=== PATIENT | female | born 1960 | race Two or more races ===

== ENCOUNTER 2019-09-05 10:26 | Inpatient (IN) | payer OTHER ==
[~2019-09-05] VITALS: Ht 157.5 cm; Wt 78.9 kg
[2019-09-20] MEDS ORDERED: ARICEPT10 MG PO (08:22)
[2019-09-20] MEDS ORDERED: CYMBALTA30 MG PO (08:22)
[2019-09-20] MEDS ORDERED: FOSAMAX70 MG PO (08:23)
[2019-09-20] MEDS ORDERED: NEUR PO (08:24)
[2019-09-20] MEDS ORDERED: TOPROL XL50 M1 PO (08:24)
[2019-09-20] MEDS ORDERED: ASPIR 8181 MG PO (08:25)
[2019-09-20] MEDS ORDERED: FORTAMET500 MG PO (08:25)
[2019-09-20] MEDS ORDERED: GABAPENT PO (08:26)
[2019-09-20] MEDS ORDERED: ZANTAC150 M3 PO (08:26)
[2019-09-20] MEDS ORDERED: CENTRUM ADULTS1 EACH PO (08:27)
[2019-09-25] MEDS ORDERED: GABAPENTIN300 M2 PO (09:38)
[2019-09-25] MEDS ORDERED: SIMVASTATIN20 MG PO (09:39)
[2019-09-25] MEDS ORDERED: MAXIMUM D3325 MCG (09:39)
[2019-09-25] MEDS ORDERED: ABANEU-SL TABL1 EACH (09:43)
[2019-10-02] MEDS ORDERED: ELIQUIS2.5 MG PO (15:23)
[2019-10-02] MEDS ORDERED: PERCOCET 5-3251 EACH PO (15:23)
== END 2019-10-02 20:56 | DRG 470 ==
LOC: SURH 09-25 04:24 → O/R 09-25 04:24 → SURH 09-25 07:00 → SURG 09-25 07:00 → SURH 09-25 15:34
PROVIDERS: ADMIT Orthopaedic Surgery
PROC: 0MNN0ZZ Release Right Knee Bursa and Ligament, Open Approach (ICD-10-PCS; 2019-09-25)
PROC: 30233N1 Transfusion of Nonautologous Red Blood Cells into Peripheral Vein, Percutaneous Approach (ICD-10-PCS; 2019-09-25)
PROC: 0SRC0J9 Replacement of Right Knee Joint with Synthetic Substitute, Cemented, Open Approach (ICD-10-PCS; principal; 2019-09-25 07:00)
DX: M17.11 Unilateral primary osteoarthritis, right knee (principal); D62 Acute posthemorrhagic anemia; D69.3 Immune thrombocytopenic purpura; Z86.73 Personal history of transient ischemic attack (TIA), and cerebral infarction without residual deficits; Z96.651 Presence of right artificial knee joint; G30.1 Alzheimer's disease with late onset; F02.80 Dementia in other diseases classified elsewhere, unspecified severity, without behavioral disturbance, psychotic disturbance, mood disturbance, and anxiety; D69.49 Other primary thrombocytopenia; E78.00 Pure hypercholesterolemia, unspecified; M22.11 Recurrent subluxation of patella, right knee

== ENCOUNTER 2020-05-30 07:09 | Outpatient (CLI) | payer OTHER ==
[~2020-05-30 07:09] MED LIST: ABANEU-SL TABL1 EACH; ARICEPT10 MG PO; ASPIR 8181 MG PO; CENTRUM ADULTS1 EACH PO; CYMBALTA30 MG PO; ELIQUIS2.5 MG PO; FORTAMET500 MG PO; FOSAMAX70 MG PO; GABAPENT PO; GABAPENTIN300 M2 PO; MAXIMUM D3325 MCG; NEUR PO; PERCOCET 5-3251 EACH PO; SIMVASTATIN20 MG PO; TOPROL XL50 M1 PO; ZANTAC150 M3 PO
== END 2020-05-30 07:21 | disposition home or self-care (01) ==
LOC: NUCLEAR 07:09
PROVIDERS: ATTEND Internal Medicine Cardiovascular Disease
DX: R07.89 Other chest pain (principal); I10 Essential (primary) hypertension; R94.31 Abnormal electrocardiogram [ECG] [EKG]; E78.00 Pure hypercholesterolemia, unspecified
CPT/HCPCS: 78452; 93017; A9500; J0153

== ENCOUNTER 2020-11-12 08:05 | Outpatient (CLI) | payer OTHER | END 2020-11-12 13:38 | disposition home or self-care (01) | LOC: OFIC 805 08:05 | PROVIDERS: ATTEND Otolaryngology Otology & Neurotology | DX: H90.6 Mixed conductive and sensorineural hearing loss, bilateral (principal); H93.13 Tinnitus, bilateral ==

== ENCOUNTER 2020-12-30 07:08 | Outpatient (CLI) | payer OTHER | END 2020-12-30 07:21 | disposition home or self-care (01) | LOC: TOM 07:08 | PROVIDERS: ATTEND Otolaryngology Otology & Neurotology | DX: H80.81 Other otosclerosis, right ear (principal) ==

== ENCOUNTER 2021-05-27 10:52 | Inpatient (IN) | payer OTHER ==
[~2021-05-27] VITALS: Ht 157.5 cm; Wt 78.9 kg
[2021-06-03] MEDS ORDERED: TRIAMCINOLONE A15 G1 (08:25)
[2021-06-03] MEDS ORDERED: ALENDRONATE SOD70 MG (08:25)
[2021-06-03] MEDS ORDERED: CLOTRIMAZOLE-BE15 G1 (08:26)
[2021-06-03] MEDS ORDERED: OMEPRAZOLE20 MG (08:26)
[2021-06-03] MEDS ORDERED: CYANOCOBAL1000 MCG/1 (08:26)
[2021-06-03] MEDS ORDERED: ZOVIRAX400 MG (08:27)
[2021-06-03] MEDS ORDERED: DICYCLOMINE HCL20 MG (08:27)
[2021-06-04] MEDS ORDERED: ELIQUIS2.5 MG PO (18:06)
[2021-06-04] MEDS ORDERED: PERCOCET 5-3251 EACH PO (18:06)
[2021-06-04] MEDS ORDERED: DUI500 PO (18:06)
== END 2021-06-04 20:13 | DRG 470 ==
LOC: SURG 06-02 05:59 → O/R 06-02 05:59 → SURH 06-02 11:00 → SURG-SUITE 06-02 11:00 → SURH 06-02 12:30 → SURG 06-02 15:29
PROVIDERS: ADMIT Orthopaedic Surgery; ATTEND Orthopaedic Surgery
PROC: 0SRD0J9 Replacement of Left Knee Joint with Synthetic Substitute, Cemented, Open Approach (ICD-10-PCS; principal; 2021-06-02 12:30)
DX: M17.12 Unilateral primary osteoarthritis, left knee (principal); D62 Acute posthemorrhagic anemia; G30.9 Alzheimer's disease, unspecified; F02.80 Dementia in other diseases classified elsewhere, unspecified severity, without behavioral disturbance, psychotic disturbance, mood disturbance, and anxiety; D51.8 Other vitamin B12 deficiency anemias; D69.6 Thrombocytopenia, unspecified; Z20.822 Contact with and (suspected) exposure to COVID-19

== ENCOUNTER 2021-09-22 05:25 | Day surgery (SDC) | payer OTHER ==
[~2021-09-22 05:25] MED LIST changes: +ALENDRONATE SOD70 MG; +CLOTRIMAZOLE-BE15 G1; +CYANOCOBAL1000 MCG/1; +DICYCLOMINE HCL20 MG; +DUI500 PO; +OMEPRAZOLE20 MG; +TRIAMCINOLONE A15 G1; +ZOVIRAX400 MG
[2021-09-22] MEDS ORDERED: DUI500 PO (14:00)
[2021-09-22] MEDS ORDERED: PERCOCET 5-3251 EACH PO (14:00)
== END 2021-09-22 14:50 | disposition home or self-care (01) ==
LOC: CIR.AMB 05:25
PROVIDERS: ATTEND Orthopaedic Surgery
DX: M24.562 Contracture, left knee (principal)

== ENCOUNTER 2021-12-15 06:14 | Outpatient (CLI) | payer OTHER | END 2021-12-15 06:19 | disposition home or self-care (01) | LOC: LAB 06:14 | PROVIDERS: ATTEND Internal Medicine Geriatric Medicine | DX: D50.9 Iron deficiency anemia, unspecified (principal); E03.9 Hypothyroidism, unspecified; E78.2 Mixed hyperlipidemia; I11.9 Hypertensive heart disease without heart failure; E56.8 Deficiency of other vitamins; N39.0 Urinary tract infection, site not specified; Z12.11 Encounter for screening for malignant neoplasm of colon; R19.5 Other fecal abnormalities; E55.9 Vitamin D deficiency, unspecified; E11.9 Type 2 diabetes mellitus without complications; D68.9 Coagulation defect, unspecified; E03.8 Other specified hypothyroidism; E64.9 Sequelae of unspecified nutritional deficiency ==

== ENCOUNTER 2022-01-20 10:15 | Outpatient (CLI) | payer OTHER | END 2022-01-20 10:20 | disposition home or self-care (01) | LOC: LAB 10:15 | DX: E11.8 Type 2 diabetes mellitus with unspecified complications (principal) ==

== ENCOUNTER 2022-01-28 07:47 | Outpatient (CLI) | payer OTHER | END 2022-01-28 08:20 | disposition home or self-care (01) | LOC: MRI 07:47 | PROVIDERS: ATTEND Orthopaedic Surgery | DX: M54.50 Low back pain, unspecified (principal) | CPT/HCPCS: 72148 ==

== ENCOUNTER 2022-02-15 08:27 | Emergency (ER) | payer OTHER ==
[~2022-02-15] VITALS: Ht 157.5 cm; Wt 78.9 kg
[2022-02-15] MEDS ORDERED: MEDROLPACK PO (10:55)
== END 2022-02-15 11:00 | disposition home or self-care (01) ==
LOC: ER 08:27
DX: G51.0 Bell's palsy (principal); Z91.041 Radiographic dye allergy status; Z91.013 Allergy to seafood; Z91.09 Other allergy status, other than to drugs and biological substances; E11.9 Type 2 diabetes mellitus without complications; Z79.899 Other long term (current) drug therapy; I10 Essential (primary) hypertension; M79.7 Fibromyalgia

== ENCOUNTER 2022-03-22 06:31 | Outpatient (CLI) | payer OTHER ==
[~2022-03-22 06:31] MED LIST changes: +MEDROLPACK PO
== END 2022-03-22 06:32 | disposition home or self-care (01) ==
LOC: LAB 06:31
PROVIDERS: ATTEND Internal Medicine Geriatric Medicine
DX: D50.9 Iron deficiency anemia, unspecified (principal); E03.9 Hypothyroidism, unspecified; E78.2 Mixed hyperlipidemia; I11.9 Hypertensive heart disease without heart failure; E56.8 Deficiency of other vitamins; N39.0 Urinary tract infection, site not specified; R19.5 Other fecal abnormalities; E55.9 Vitamin D deficiency, unspecified; N19 Unspecified kidney failure; E11.9 Type 2 diabetes mellitus without complications; R80.9 Proteinuria, unspecified; Z12.11 Encounter for screening for malignant neoplasm of colon

== ENCOUNTER 2022-03-24 06:22 | Outpatient (CLI) | payer OTHER | END 2022-03-24 06:32 | disposition home or self-care (01) | LOC: LAB 06:22 | PROVIDERS: ATTEND Internal Medicine Geriatric Medicine | DX: D50.9 Iron deficiency anemia, unspecified (principal); E03.9 Hypothyroidism, unspecified; E78.2 Mixed hyperlipidemia; I11.9 Hypertensive heart disease without heart failure; E56.8 Deficiency of other vitamins; N39.0 Urinary tract infection, site not specified; R19.5 Other fecal abnormalities; N19 Unspecified kidney failure; E11.9 Type 2 diabetes mellitus without complications; R80.9 Proteinuria, unspecified; Z12.11 Encounter for screening for malignant neoplasm of colon ==

== ENCOUNTER 2022-09-01 06:10 | Outpatient (CLI) | payer OTHER | END 2022-09-01 07:53 | disposition home or self-care (01) | LOC: LAB 06:10 | PROVIDERS: ATTEND Internal Medicine | DX: I25.9 Chronic ischemic heart disease, unspecified (principal); E78.9 Disorder of lipoprotein metabolism, unspecified; I11.9 Hypertensive heart disease without heart failure ==

== ENCOUNTER → 2022-09-01 | Outpatient (CLI) | payer OTHER | END | disposition home or self-care (01) | LOC: NUCLEAR 07:00 | PROVIDERS: ATTEND Internal Medicine Cardiovascular Disease | DX: R00.0 Tachycardia, unspecified (principal) ==

== ENCOUNTER 2022-09-03 06:51 | Outpatient (CLI) | payer OTHER | END 2022-09-03 07:03 | disposition home or self-care (01) | LOC: LAB 06:51 | DX: U07.1 COVID-19 (principal) ==

== ENCOUNTER → 2022-09-07 | Outpatient (CLI) | payer OTHER | END | disposition home or self-care (01) | LOC: NUCLEAR 07:00 | PROVIDERS: ATTEND Internal Medicine | DX: I25.10 Atherosclerotic heart disease of native coronary artery without angina pectoris (principal) | CPT/HCPCS: 78452; 93017; A9500 ==

== ENCOUNTER → 2022-10-06 09:07 | Outpatient (CLI) | payer OTHER | END | disposition home or self-care (01) | LOC: LAB 09:07 | PROVIDERS: ATTEND Internal Medicine Geriatric Medicine | DX: D50.9 Iron deficiency anemia, unspecified (principal); E03.9 Hypothyroidism, unspecified; E78.2 Mixed hyperlipidemia; I11.9 Hypertensive heart disease without heart failure; E56.8 Deficiency of other vitamins; N39.0 Urinary tract infection, site not specified; Z12.11 Encounter for screening for malignant neoplasm of colon; R19.5 Other fecal abnormalities; E55.9 Vitamin D deficiency, unspecified; N19 Unspecified kidney failure; E11.9 Type 2 diabetes mellitus without complications; K82.8 Other specified diseases of gallbladder ==

== ENCOUNTER 2022-10-14 07:05 | Outpatient (CLI) | payer OTHER | END 2022-10-14 07:16 | disposition home or self-care (01) | LOC: MRI 07:05 | PROVIDERS: ATTEND Internal Medicine Geriatric Medicine | DX: K82.8 Other specified diseases of gallbladder (principal) | CPT/HCPCS: 74183; Q9965 ==

== ENCOUNTER → 2022-11-16 06:05 | Outpatient (CLI) | payer OTHER | END | disposition home or self-care (01) | LOC: LAB 06:05 | PROVIDERS: ATTEND Internal Medicine Geriatric Medicine | DX: N39.0 Urinary tract infection, site not specified (principal) ==

== ENCOUNTER → 2022-12-29 | Outpatient (CLI) | payer OTHER | END | disposition home or self-care (01) | LOC: NUCLEAR 09:59 | PROVIDERS: ATTEND Internal Medicine Geriatric Medicine | DX: M15.0 Primary generalized (osteo)arthritis (principal); M81.0 Age-related osteoporosis without current pathological fracture ==

== ENCOUNTER 2023-01-10 07:29 | Outpatient (CLI) | payer OTHER | END 2023-01-10 07:43 | disposition home or self-care (01) | LOC: MAMO-SONO 07:29 | PROVIDERS: ATTEND Internal Medicine Geriatric Medicine | DX: Z12.31 Encounter for screening mammogram for malignant neoplasm of breast (principal); C50.919 Malignant neoplasm of unspecified site of unspecified female breast; N63.0 Unspecified lump in unspecified breast; N64.4 Mastodynia; N60.12 Diffuse cystic mastopathy of left breast; N60.11 Diffuse cystic mastopathy of right breast ==

== ENCOUNTER 2023-01-26 06:08 | Outpatient (CLI) | payer OTHER | END 2023-01-26 06:16 | disposition home or self-care (01) | LOC: LAB 06:08 | PROVIDERS: ATTEND Internal Medicine Geriatric Medicine | DX: D50.9 Iron deficiency anemia, unspecified (principal); E03.9 Hypothyroidism, unspecified; E78.2 Mixed hyperlipidemia; I11.9 Hypertensive heart disease without heart failure; E56.8 Deficiency of other vitamins; N39.0 Urinary tract infection, site not specified; Z12.11 Encounter for screening for malignant neoplasm of colon; E55.9 Vitamin D deficiency, unspecified; N19 Unspecified kidney failure; E11.9 Type 2 diabetes mellitus without complications; R80.9 Proteinuria, unspecified; K92.1 Melena ==

== ENCOUNTER 2023-04-04 07:26 | Outpatient (CLI) | payer OTHER | END 2023-04-04 07:33 | disposition home or self-care (01) | LOC: MRI 07:26 | PROVIDERS: ATTEND Physical Medicine & Rehabilitation | DX: M54.2 Cervicalgia (principal) | CPT/HCPCS: 72141 ==

== ENCOUNTER 2023-06-20 07:12 | Outpatient (CLI) | payer OTHER | END 2023-06-20 07:19 | disposition home or self-care (01) | LOC: MRI 07:12 | PROVIDERS: ATTEND Physical Medicine & Rehabilitation | DX: M54.59 Other low back pain (principal); M54.16 Radiculopathy, lumbar region | CPT/HCPCS: 72148 ==

== ENCOUNTER 2023-09-28 06:37 | Outpatient (CLI) | payer OTHER ==
[2023-09-28 07:58] LABS: URINE APPEARANCE Clear; URINE BILIRRUBIN Negative (NEGATIVE); URINE BLOOD Negative; URINE COLOR Yellow; URINE GLUCOSE Negative (NEGATIVE); URINE LEUKOCYTE Negative; URINE NITRATE Negative; URINE PROTEIN Negative (NEGATIVE); URINE UROBILINOGEN 0.2 E.U./dl
[2023-09-28 08:00] LABS: HEMATOCRIT 38.6 % (36.0-45.00); HEMOGLOBIN 12.3 g/dL (12.0-15.00); MEAN CORPUSCULAR HEMOGLOBIN 21.8 pg (27.00-32.0); PLATELET COUNT 130 K/uL (150-450); RED BLOOD COUNT 5.66 M/uL (4.00-6.00); RED CELL DISTRIBUTION WIDTH 16.1 % (11.5-14.5)
[2023-09-28 08:03] LABS: URINE BACTERIA 221.6 uL (0.0-1933); URINE EPITHELIAL CELLS 12.4 uL (0.0-38.8); URINE RBC 3.1 uL (0.0-20.8); URINE WBC 9.7 uL (0.0-23.2)
[2023-09-28 08:30] LABS: ALBUMIN 3.5 gm/dL (3.4-5.0); BILIRUBIN TOTAL 0.67 mg/dL (0.3-1.2); CALCIUM 9.1 mg/dL (8.5-10.1); CHOL HDL RATIO 3.5 (0-5.0); CREATININE SERUM 0.56 mg/dL (0.55-1.02); GFR 109.34; GLOBULINA 3.7 G/DL (2.4-3.5); MEAN CELL VOLUME 68.1 fL (80.00-100.00); POTASSIUM 3.83 mEq/L (3.5-5.1); TOTAL PROTEIN 7.2 gm/dL (6.4-8.2); TSH 1.19 uIU/mL (0.358-3.74)
== END 2023-09-28 06:39 | disposition home or self-care (01) ==
LOC: LAB 06:37
PROVIDERS: ATTEND Internal Medicine Geriatric Medicine
DX: D50.9 Iron deficiency anemia, unspecified (principal); E03.9 Hypothyroidism, unspecified; E78.2 Mixed hyperlipidemia; I11.9 Hypertensive heart disease without heart failure; E56.8 Deficiency of other vitamins; N39.0 Urinary tract infection, site not specified; Z12.11 Encounter for screening for malignant neoplasm of colon; R19.5 Other fecal abnormalities; E55.9 Vitamin D deficiency, unspecified; N19 Unspecified kidney failure; E11.9 Type 2 diabetes mellitus without complications

== ENCOUNTER 2023-10-03 07:03 | Outpatient (CLI) | payer OTHER | END 2023-10-03 07:06 | disposition home or self-care (01) | LOC: RAD 07:03 | PROVIDERS: ATTEND Internal Medicine Pulmonary Disease | DX: G47.33 Obstructive sleep apnea (adult) (pediatric) (principal); E66.01 Morbid (severe) obesity due to excess calories; R06.02 Shortness of breath ==

== ENCOUNTER → 2023-10-27 06:44 | Outpatient (CLI) | payer OTHER ==
[2023-10-27 07:54] LABS: HEMATOCRIT 39.3 % (36.0-45.00); HEMOGLOBIN 12.6 g/dL (12.0-15.00); PLATELET COUNT 160 K/uL (150-450); RED BLOOD COUNT 5.73 M/uL (4.00-6.00); RED CELL DISTRIBUTION WIDTH 15.8 % (11.5-14.5)
[2023-10-27 07:55] LABS: MEAN CELL VOLUME 68.7 fL (80.00-100.00)
[2023-10-27 08:48] LABS: ALBUMIN 3.5 gm/dL (3.4-5.0); BILIRUBIN TOTAL 0.35 mg/dL (0.3-1.2); CALCIUM 9.2 mg/dL (8.5-10.1); CREATININE SERUM 0.59 mg/dL (0.55-1.02); GFR 102.94; GLOBULINA 3.9 G/DL (2.4-3.5); POTASSIUM 4.42 mEq/L (3.5-5.1); TOTAL PROTEIN 7.4 gm/dL (6.4-8.2); TSH 0.72 uIU/mL (0.358-3.74)
[2023-10-27 10:54] LABS: FOLIC ACID 8.45 ng/ml (4.78-20)
== END | disposition home or self-care (01) ==
LOC: LAB 06:44
DX: D51.3 Other dietary vitamin B12 deficiency anemia (principal); E11.9 Type 2 diabetes mellitus without complications; E72.11 Homocystinuria; D50.9 Iron deficiency anemia, unspecified; E03.9 Hypothyroidism, unspecified; Z88.6 Allergy status to analgesic agent; Z91.041 Radiographic dye allergy status

== ENCOUNTER 2024-02-16 07:38 | Outpatient (CLI) | payer OTHER | END 2024-02-16 07:39 | disposition home or self-care (01) | LOC: NUCLEAR 07:38 | PROVIDERS: ATTEND Internal Medicine Geriatric Medicine | DX: I87.2 Venous insufficiency (chronic) (peripheral) (principal) ==

== ENCOUNTER 2024-05-07 06:12 | Outpatient (CLI) | payer OTHER ==
[2024-05-07 07:27] LABS: HEMATOCRIT 37.8 % (36.0-45.00); HEMOGLOBIN 12.2 g/dL (12.0-15.00); MEAN CORPUSCULAR HEMOGLOBIN 22.3 pg (27.00-32.0); MEAN CORPUSCULAR HGB CONC 32.4 g/dl (32.0-36.0); PLATELET COUNT 131 K/uL (150-450); RED CELL DISTRIBUTION WIDTH 15.9 % (11.5-14.5)
[2024-05-07 07:41] LABS: MEAN CELL VOLUME 68.8 fL (80.00-100.00)
[2024-05-07 08:08] LABS: ALBUMIN 3.5 gm/dL (3.4-5.0); BILIRUBIN TOTAL 0.37 mg/dL (0.3-1.2); CALCIUM 8.6 mg/dL (8.5-10.1); CREATININE SERUM 0.59 mg/dL (0.55-1.02); GFR 102.62; GLOBULINA 3.5 G/DL (2.4-3.5); POTASSIUM 4.12 mEq/L (3.5-5.1)
[2024-05-07 12:33] LABS: FOLIC ACID 9.15 ng/ml (4.78-20); VITAMIN D3 25 HYDROXY 37.61 ng/ml (30-120)
[2024-05-07 13:12] LABS: MANUAL PLATELET COUNT 330; PLATELET ESTIMATE NORMAL (NORMAL)
[2024-05-08 13:11] LABS: CA 125 12.1 U/mL (0.0-38.1); HOMOCYSTEINE 12.3 umol/L (0.0-17.2)
== END 2024-05-07 06:13 | disposition home or self-care (01) ==
LOC: LAB 06:12
PROVIDERS: ATTEND Internal Medicine Hematology & Oncology
DX: D51.1 Vitamin B12 deficiency anemia due to selective vitamin B12 malabsorption with proteinuria (principal); D51.3 Other dietary vitamin B12 deficiency anemia; M17.11 Unilateral primary osteoarthritis, right knee; D62 Acute posthemorrhagic anemia; Z96.651 Presence of right artificial knee joint; G30.0 Alzheimer's disease with early onset; E11.9 Type 2 diabetes mellitus without complications; E55.9 Vitamin D deficiency, unspecified; E78.2 Mixed hyperlipidemia; A60.09 Herpesviral infection of other urogenital tract; E72.11 Homocystinuria; D50.8 Other iron deficiency anemias; R79.9 Abnormal finding of blood chemistry, unspecified; I10 Essential (primary) hypertension; R74.02 Elevation of levels of lactic acid dehydrogenase [LDH]; K76.89 Other specified diseases of liver; C56.9 Malignant neoplasm of unspecified ovary; R97.1 Elevated cancer antigen 125 [CA 125]; D68.59 Other primary thrombophilia

== ENCOUNTER → 2024-07-16 06:20 | Outpatient (CLI) | payer OTHER ==
[2024-07-16 07:29] LABS: HEMATOCRIT 39.1 % (36.0-45.00); HEMOGLOBIN 12.2 g/dL (12.0-15.00); MEAN CORPUSCULAR HEMOGLOBIN 21.8 pg (27.00-32.0); MEAN CORPUSCULAR HGB CONC 31.3 g/dl (32.0-36.0); PLATELET COUNT 205 K/uL (150-450); RED BLOOD COUNT 5.61 M/uL (4.00-6.00); RED CELL DISTRIBUTION WIDTH 15.2 % (11.5-14.5)
[2024-07-16 07:31] LABS: URINE APPEARANCE Clear; URINE BILIRRUBIN Negative (NEGATIVE); URINE BLOOD Negative; URINE COLOR Yellow; URINE GLUCOSE Negative (NEGATIVE); URINE KETONE Negative (NEGATIVE); URINE LEUKOCYTE Moderate; URINE NITRATE Negative; URINE PROTEIN Negative (NEGATIVE)
[2024-07-16 07:32] LABS: MEAN CELL VOLUME 69.6 fL (80.00-100.00)
[2024-07-16 07:52] LABS: URINE BACTERIA 3177.5 uL (0.0-1933); URINE RBC 5.8 uL (0.0-20.8); URINE WBC 36.9 uL (0.0-23.2)
[2024-07-16 08:09] LABS: URINE CAST 0.15 uL (0.0-1.40)
[2024-07-16 08:27] LABS: ALBUMIN 3.6 gm/dL (3.4-5.0); BILIRUBIN TOTAL 0.43 mg/dL (0.3-1.2); CALCIUM 9.1 mg/dL (8.5-10.1); CHOL HDL RATIO 2.8 (0-5.0); CREATININE SERUM 0.6 mg/dL (0.55-1.02); GFR 100.64; GLOBULINA 3.7 G/DL (2.4-3.5); POTASSIUM 4.21 mEq/L (3.5-5.1); TOTAL PROTEIN 7.3 gm/dL (6.4-8.2); TSH 1.59 uIU/mL (0.358-3.74)
== END | disposition home or self-care (01) ==
LOC: LAB 06:20
PROVIDERS: ATTEND Internal Medicine Geriatric Medicine
DX: D50.9 Iron deficiency anemia, unspecified (principal); E03.9 Hypothyroidism, unspecified; E78.2 Mixed hyperlipidemia; I11.9 Hypertensive heart disease without heart failure; E56.8 Deficiency of other vitamins; N39.0 Urinary tract infection, site not specified; Z12.11 Encounter for screening for malignant neoplasm of colon; R19.5 Other fecal abnormalities; E55.9 Vitamin D deficiency, unspecified; N19 Unspecified kidney failure; E11.9 Type 2 diabetes mellitus without complications

== ENCOUNTER 2024-09-17 12:17 | Outpatient (CLI) | payer OTHER | END 2024-09-17 12:19 | disposition home or self-care (01) | LOC: RAD 12:17 | DX: R05.1 Acute cough (principal) ==

== ENCOUNTER 2024-09-20 06:11 | Outpatient (CLI) | payer OTHER ==
[2024-09-20 07:03] LABS: URINE APPEARANCE Cloudy; URINE BILIRRUBIN Negative (NEGATIVE); URINE BLOOD Negative; URINE COLOR Yellow; URINE GLUCOSE Negative (NEGATIVE); URINE KETONE Negative (NEGATIVE); URINE LEUKOCYTE Negative; URINE NITRATE Negative; URINE PROTEIN Negative (NEGATIVE); URINE UROBILINOGEN 0.2 E.U./dl
[2024-09-20 07:04] LABS: URINE BACTERIA 1791.8 uL (0.0-1933); URINE EPITHELIAL CELLS 18.6 uL (0.0-38.8); URINE RBC 2.6 uL (0.0-20.8); URINE WBC 21.3 uL (0.0-23.2)
[2024-09-20 07:13] LABS: URINE CAST 0.29 uL (0.0-1.40)
[2024-09-20 07:39] LABS: HEMATOCRIT 39.3 % (36.0-45.00); HEMOGLOBIN 12.8 g/dL (12.0-15.00); MEAN CORPUSCULAR HEMOGLOBIN 22.3 pg (27.00-32.0); MEAN CORPUSCULAR HGB CONC 32.6 g/dl (32.0-36.0); PLATELET COUNT 142 K/uL (150-450); RED BLOOD COUNT 5.74 M/uL (4.00-6.00)
[2024-09-20 07:47] LABS: MEAN CELL VOLUME 68.4 fL (80.00-100.00)
[2024-09-20 07:49] LABS: INR 0.95; PARTIAL THROMBOPLASTIN TIME 25.4 SECONDS (22.0-34.0); PROTHROMBIN TIME 10.4 SECONDS (9.0-11.5)
[2024-09-20 08:54] LABS: ALBUMIN 3.5 gm/dL (3.4-5.0); BILIRUBIN TOTAL 0.51 mg/dL (0.3-1.2); CALCIUM 9.4 mg/dL (8.5-10.1); CREATININE SERUM 0.66 mg/dL (0.55-1.02); GFR 90.16; GLOBULINA 3.3 G/DL (2.4-3.5); POTASSIUM 4.4 mEq/L (3.5-5.1); TOTAL PROTEIN 6.8 gm/dL (6.4-8.2)
== END 2024-09-20 06:29 | disposition home or self-care (01) ==
LOC: LAB 06:11
DX: D64.9 Anemia, unspecified (principal); N39.0 Urinary tract infection, site not specified; R79.1 Abnormal coagulation profile; R79.89 Other specified abnormal findings of blood chemistry

== ENCOUNTER 2024-10-11 06:12 | Emergency (ER) | payer OTHER ==
[~2024-10-11] VITALS: Ht 152.4 cm; Wt 83.9 kg
[2024-10-11] MEDS ORDERED: ORPHENADRINE CITRATE 30 MG/ML AMPUL ONE (08:41)
[2024-10-11] MEDS ORDERED: ORPHENADRINE CITRATE 30 MG/ML AMPUL IM ONE (08:45)
[2024-10-11] MEDS ORDERED: NORFLEX100MG PO (11:02)
== END 2024-10-11 11:45 | disposition home or self-care (01) ==
LOC: ER 06:12
DX: M54.9 Dorsalgia, unspecified (principal); I10 Essential (primary) hypertension; E11.9 Type 2 diabetes mellitus without complications; Z79.84 Long term (current) use of oral hypoglycemic drugs; Z91.041 Radiographic dye allergy status
CPT/HCPCS: 72100; 96372; 99283; J2360

== ENCOUNTER → 2025-01-24 06:17 | Outpatient (CLI) | payer OTHER ==
[~2025-01-24 06:17] MED LIST changes: +NORFLEX100MG PO
[2025-01-24 07:43] LABS: BASO % 0.4 % (0.1-1.2); EOS # 0.15 (0.04-0.54); EOS % 2.1 % (0.7-7.0); HEMATOCRIT 38.6 % (34.1-44.9); LYMPH # 2.07 (1.18-3.74); LYMPH % 29.1 % (19.3-53.1); MEAN CORPUSCULAR HEMOGLOBIN 21.9 pg (25.6-32.2); MONO # 0.66 (0.24-0.82); MONO % 9.3 % (4.7-12.5); NEUT # 4.17 (1.56-6.13); NEUT % 58.7 % (34.0-71.1); RED BLOOD COUNT 5.48 M/uL (3.93-5.22); RED CELL DISTRIBUTION WIDTH 15.4 % (11.6-14.4)
[2025-01-24 07:52] LABS: PLATELET COUNT 125 K/uL (163-369)
[2025-01-24 08:06] LABS: PH,URINE 5.5 (5.0-8.0); URINE APPEARANCE Clear; URINE BILIRRUBIN Negative (NEGATIVE); URINE BLOOD Negative; URINE COLOR Yellow; URINE GLUCOSE Negative (NEGATIVE); URINE KETONE Negative (NEGATIVE); URINE LEUKOCYTE Negative; URINE NITRATE Negative; URINE PROTEIN Negative (NEGATIVE); URINE UROBILINOGEN 0.2 E.U./dl
[2025-01-24 08:08] LABS: URINE BACTERIA 299.7 uL (0.0-1933); URINE EPITHELIAL CELLS 3.3 uL (0.0-38.8); URINE WBC 7.1 uL (0.0-23.2)
[2025-01-24 08:37] LABS: ALBUMIN 3.4 gm/dL (3.4-5.0); BILIRUBIN TOTAL 0.45 mg/dL (0.3-1.2); CALCIUM 8.9 mg/dL (8.5-10.1); CHOL HDL RATIO 3.2 (0-5.0); CREATININE SERUM 0.58 mg/dL (0.55-1.02); GFR 104.66; GLOBULINA 3.7 G/DL (2.4-3.5); POTASSIUM 3.89 mEq/L (3.5-5.1); TOTAL PROTEIN 7.1 gm/dL (6.4-8.2); TSH 1.58 uIU/mL (0.358-3.74)
[2025-01-24 08:49] LABS: URINE CAST 0.14 uL (0.0-1.40); URINE RBC 1.4 uL (0.0-20.8)
== END | disposition home or self-care (01) ==
LOC: LAB 06:17
PROVIDERS: ATTEND Internal Medicine Geriatric Medicine
DX: D50.9 Iron deficiency anemia, unspecified (principal); E03.9 Hypothyroidism, unspecified; E78.2 Mixed hyperlipidemia; I11.9 Hypertensive heart disease without heart failure; E56.8 Deficiency of other vitamins; N39.0 Urinary tract infection, site not specified; Z12.11 Encounter for screening for malignant neoplasm of colon; R19.5 Other fecal abnormalities; E55.9 Vitamin D deficiency, unspecified; N19 Unspecified kidney failure; E11.9 Type 2 diabetes mellitus without complications; R80.9 Proteinuria, unspecified; C18.0 Malignant neoplasm of cecum

== ENCOUNTER 2025-01-24 07:04 | Outpatient (CLI) | payer OTHER | END 2025-01-24 07:11 | disposition home or self-care (01) | LOC: SONOGRAMA 07:04 | PROVIDERS: ATTEND Internal Medicine Pulmonary Disease | DX: J98.6 Disorders of diaphragm (principal) ==

== ENCOUNTER 2025-01-28 06:14 | Outpatient (CLI) | payer OTHER ==
[2025-01-28 10:32] LABS: ob POSITIVE (NEGATIVE)
== END 2025-01-28 06:15 | disposition home or self-care (01) ==
LOC: LAB 06:14
PROVIDERS: ATTEND Internal Medicine Geriatric Medicine
DX: D50.9 Iron deficiency anemia, unspecified (principal); E03.9 Hypothyroidism, unspecified; E78.2 Mixed hyperlipidemia; I11.9 Hypertensive heart disease without heart failure; E56.8 Deficiency of other vitamins; N39.0 Urinary tract infection, site not specified; Z12.11 Encounter for screening for malignant neoplasm of colon; R19.5 Other fecal abnormalities; E55.9 Vitamin D deficiency, unspecified; N19 Unspecified kidney failure; E11.9 Type 2 diabetes mellitus without complications; R80.9 Proteinuria, unspecified; C18.9 Malignant neoplasm of colon, unspecified

== ENCOUNTER 2025-03-25 06:47 | Outpatient (CLI) | payer OTHER ==
[2025-03-25 07:59] LABS: BASO % 0.3 % (0.1-1.2); EOS # 0.12 (0.04-0.54); EOS % 1.7 % (0.7-7.0); LYMPH # 1.98 (1.18-3.74); LYMPH % 27.5 % (19.3-53.1); MEAN PLATELET VOLUME 10.50 fl (9.4-12.4); MONO # 0.69 (0.24-0.82); MONO % 9.6 % (4.7-12.5); NEUT # 4.35 (1.56-6.13); NEUT % 60.3 % (34.0-71.1); RED CELL DISTRIBUTION WIDTH 15.6 % (11.6-14.4)
[2025-03-25 09:00] LABS: ALT/SGPT 24.0 U/L (12-78); AST/SGOT 14.0 U/L (15-37); BILIRUBIN TOTAL 0.33 mg/dL (0.3-1.2); BUN CREA RATIO 34.0 (7.0-25.0); CREATININE SERUM 0.58 mg/dL (0.55-1.02); GFR 104.66; GLOBULINA 3.6 G/DL (2.4-3.5); GLUCOSE FASTING 106.0 mg/dL (65-100); OSMOLALITY SERUM 281.0 MOSM/KG (275-295); TSH 1.42 uIU/mL (0.358-3.74)
[2025-03-25 15:29] LABS: FOLIC ACID 8.37 ng/ml (4.78-20)
== END 2025-03-25 06:49 | disposition home or self-care (01) ==
LOC: LAB 06:47
PROVIDERS: ATTEND Psychiatry & Neurology Neurology
DX: E03.9 Hypothyroidism, unspecified (principal); D51.3 Other dietary vitamin B12 deficiency anemia; E72.11 Homocystinuria; E11.9 Type 2 diabetes mellitus without complications; D50.9 Iron deficiency anemia, unspecified

== ENCOUNTER 2025-03-25 07:42 | Outpatient (CLI) | payer OTHER | END 2025-03-25 07:44 | disposition home or self-care (01) | LOC: MRI 07:42 | PROVIDERS: ATTEND Psychiatry & Neurology Neurology | DX: F01.50 Vascular dementia, unspecified severity, without behavioral disturbance, psychotic disturbance, mood disturbance, and anxiety (principal); F03.90 Unspecified dementia, unspecified severity, without behavioral disturbance, psychotic disturbance, mood disturbance, and anxiety | CPT/HCPCS: 70551 ==

== ENCOUNTER 2025-04-25 07:22 | Outpatient (CLI) | payer OTHER ==
[2025-04-25 08:11] LABS: BASO % 0.3 % (0.1-1.2); EOS # 0.10 (0.04-0.54); EOS % 1.5 % (0.7-7.0); LYMPH # 2.11 (1.18-3.74); LYMPH % 31.0 % (19.3-53.1); MEAN PLATELET VOLUME 10.70 fl (9.4-12.4); MONO # 0.66 (0.24-0.82); MONO % 9.7 % (4.7-12.5); NEUT # 3.89 (1.56-6.13); NEUT % 57.2 % (34.0-71.1); RED CELL DISTRIBUTION WIDTH 15.5 % (11.6-14.4)
[2025-04-25 09:39] LABS: % SATURACION 15.6 % (15-50); ALT/SGPT 21.0 U/L (12-78); AST/SGOT 15.0 U/L (15-37); BILIRUBIN TOTAL 0.29 mg/dL (0.3-1.2); BUN CREA RATIO 30.0 (7.0-25.0); CHOL HDL RATIO 3.2 (0-5.0); CREATININE SERUM 0.66 mg/dL (0.55-1.02); FE 45.0 ug/dl (50-170); GFR 90.16; GLOBULINA 3.5 G/DL (2.4-3.5); GLUCOSE FASTING 102.0 mg/dL (65-100); HDL 59.0 mg/dl (40-60); LDH 209.0 U/L (84-246); LDL 113.0 mg/dl (0-130); OSMOLALITY SERUM 288.0 MOSM/KG (275-295); TSH 1.09 uIU/mL (0.358-3.74); VLDL 16.0 (0-39)
[2025-04-25 10:43] LABS: FOLIC ACID 10.26 ng/ml (4.78-20); VITAMIN D3 25 HYDROXY 39.2 ng/ml (30-120)
== END 2025-04-25 07:30 | disposition home or self-care (01) ==
LOC: LAB 07:22
PROVIDERS: ATTEND Internal Medicine Hematology & Oncology
DX: D51.1 Vitamin B12 deficiency anemia due to selective vitamin B12 malabsorption with proteinuria (principal); D51.3 Other dietary vitamin B12 deficiency anemia; M17.11 Unilateral primary osteoarthritis, right knee; D62 Acute posthemorrhagic anemia; Z96.651 Presence of right artificial knee joint; G30.0 Alzheimer's disease with early onset; E11.9 Type 2 diabetes mellitus without complications; E55.9 Vitamin D deficiency, unspecified; E78.2 Mixed hyperlipidemia; A60.09 Herpesviral infection of other urogenital tract; D50.8 Other iron deficiency anemias; R79.9 Abnormal finding of blood chemistry, unspecified; I10 Essential (primary) hypertension; R74.02 Elevation of levels of lactic acid dehydrogenase [LDH]; K76.89 Other specified diseases of liver; Z13.29 Encounter for screening for other suspected endocrine disorder; D68.59 Other primary thrombophilia; I11.9 Hypertensive heart disease without heart failure; E78.9 Disorder of lipoprotein metabolism, unspecified; E03.9 Hypothyroidism, unspecified

== ENCOUNTER 2025-04-29 07:54 | Outpatient (CLI) | payer OTHER | END 2025-04-29 07:57 | disposition home or self-care (01) | LOC: LAB 07:54 | PROVIDERS: ATTEND Internal Medicine Hematology & Oncology | DX: D68.61 Antiphospholipid syndrome (principal) ==

== ENCOUNTER 2025-06-13 07:08 | Emergency (ER) | payer OTHER ==
[~2025-06-13] VITALS: Ht 152.4 cm; Wt 82.6 kg
[2025-06-13 08:20] LABS: BASO % 0.4 % (0.1-1.2); EOS # 0.13 (0.04-0.54); EOS % 1.6 % (0.7-7.0); LYMPH # 2.03 (1.18-3.74); LYMPH % 24.2 % (19.3-53.1); MEAN PLATELET VOLUME 10.40 fl (9.4-12.4); MONO # 0.75 (0.24-0.82); MONO % 8.9 % (4.7-12.5); NEUT # 5.41 (1.56-6.13); NEUT % 64.5 % (34.0-71.1); RED CELL DISTRIBUTION WIDTH 15.1 % (11.6-14.4)
[2025-06-13 08:23] LABS: URINE APPEARANCE Clear; URINE BILIRRUBIN Negative (NEGATIVE); URINE BLOOD Negative; URINE COLOR Dark Yellow; URINE GLUCOSE Negative (NEGATIVE); URINE KETONE Negative (NEGATIVE); URINE LEUKOCYTE Small; URINE NITRATE Negative; URINE PROTEIN Negative (NEGATIVE); URINE UROBILINOGEN 0.2 E.U./dl
[2025-06-13 08:24] LABS: URINE BACTERIA 3985.2 uL (0.0-1933); URINE EPITHELIAL CELLS 33.6 uL (0.0-38.8); URINE RBC 3.2 uL (0.0-20.8); URINE WBC 49.8 uL (0.0-23.2)
[2025-06-13 08:27] LABS: URINE CAST 0.58 uL (0.0-1.40)
[2025-06-13] MEDS ORDERED: CEFTRIAXONE SODIUM 1,000 MG VIAL IM ONE (08:30)
[2025-06-13 08:39] LABS: ALT/SGPT 29.0 U/L (12-78); AST/SGOT 20.0 U/L (15-37); BILIRUBIN TOTAL 0.54 mg/dL (0.3-1.2); BUN CREA RATIO 35.0 (7.0-25.0); CREATININE SERUM 0.54 mg/dL (0.55-1.02); GFR 113.3; GLOBULINA 4.2 G/DL (2.4-3.5); GLUCOSE FASTING 115.0 mg/dL (65-100); OSMOLALITY SERUM 284.0 MOSM/KG (275-295)
[2025-06-13] MEDS ORDERED: CEFTRIAXONE SODIUM 1,000 MG VIAL ONE (09:01)
[2025-06-13] MEDS ORDERED: BACTRIM DS TAB1 EACH PO (09:17)
[2025-06-13] MEDS ORDERED: PEPCID AC20 MG PO (09:17)
== END 2025-06-13 09:23 | disposition home or self-care (01) ==
LOC: ER 07:09
PROVIDERS: General Practice
DX: S80.02XA Contusion of left knee, initial encounter (principal); S30.11XA Contusion of abdominal wall, initial encounter; W18.39XA Other fall on same level, initial encounter; Y93.89 Activity, other specified; Y92.89 Other specified places as the place of occurrence of the external cause; Y99.9 Unspecified external cause status; N20.0 Calculus of kidney; N28.1 Cyst of kidney, acquired; E11.9 Type 2 diabetes mellitus without complications; Z79.84 Long term (current) use of oral hypoglycemic drugs; G30.9 Alzheimer's disease, unspecified; F02.80 Dementia in other diseases classified elsewhere, unspecified severity, without behavioral disturbance, psychotic disturbance, mood disturbance, and anxiety; Z88.8 Allergy status to other drugs, medicaments and biological substances; Z91.041 Radiographic dye allergy status
CPT/HCPCS: 36415; 73560; 74176; 96372; 99283; J0696

== ENCOUNTER 2025-07-04 08:35 | Outpatient (CLI) | payer OTHER ==
[~2025-07-04 08:35] MED LIST changes: +BACTRIM DS TAB1 EACH PO; +PEPCID AC20 MG PO
== END 2025-07-04 08:39 | disposition home or self-care (01) ==
LOC: TOM 08:35
PROVIDERS: ATTEND Internal Medicine Geriatric Medicine
DX: R06.02 Shortness of breath (principal); Z12.31 Encounter for screening mammogram for malignant neoplasm of breast; C50.919 Malignant neoplasm of unspecified site of unspecified female breast; N63.0 Unspecified lump in unspecified breast; N64.4 Mastodynia; N60.12 Diffuse cystic mastopathy of left breast; N60.11 Diffuse cystic mastopathy of right breast